=== PATIENT | male | born 1995 | race African-American/Black ===

== ENCOUNTER 2021-02-17 21:00 | Emergency (ER) | payer OTHER ==
[~2021-02-17] VITALS: Ht 177.8 cm; Wt 63.5 kg
[2021-02-17 23:05] VITALS: BP 130/83
== END 2021-02-17 23:06 | disposition home or self-care (01) ==
LOC: ER 21:00
DX: S82.831A Other fracture of upper and lower end of right fibula, initial encounter for closed fracture (principal); W21.05XA Struck by basketball, initial encounter; Y93.89 Activity, other specified; Y92.89 Other specified places as the place of occurrence of the external cause; Y99.8 Other external cause status